=== PATIENT | female | born 1980 | race Two or more races ===

== ENCOUNTER 2024-10-11 08:53 | Outpatient (RCR) | payer MEDICAID, SELFPAY ==
--- NOTE | 2024-10-11 14:26 | CTCFLWUP_ITS ---
Patient: SHIREEN TAYLOR I. : 1980 Page 2 of 3 FOLLOW UP NOTE DATE OF SERVICE: 10/11/2024 NAME: SHIREEN TAYLOR I. ACCOUNT: [id number] : 1980 AGE: 44 INTERVAL HISTORY: Breast cancer ONCOLOGY HISTORY: DIAGNOSIS: Invasive ductal carcinoma DATE OF DIAGNOSIS: 08/18/2024 STAGE/TNM: Likely stage I TREATMENT HISTORY: Care?Plan Start?Date Cycle Day Intent HISTORY OF PRESENT ILLNESS: Patient is 44-year-old with a new diagnosis of breast cancer. Patient have a left breast biopsy done after she was found to have mass on the ultrasound. Patient's pathology report is not available. Patient have seen general surgeon but is requesting a referral to another surgeon. Patient is also very worried that her diagnosis may not be correct and requesting a repeat biopsy. 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 No Medications Medications Last Reconciled by Natalia Dewey RN on 10/11/2024 ALLERGIES: No Known Drug Allergies REVIEW OF SYSTEMS: A complete 14-point review of systems was performed and is negative except as noted in interval history. PHYSICAL EXAMINATION: VITAL SIGNS: Temperature?99.6, B/P?144/100, Height?62?inches, Oxygen?Saturation?99% Weight?155?lbs PAIN: 0 - No pain ECOG Performance Status: 0 - Asymptomatic and fully active GENERAL APPEARANCE: Appears well, in no apparent distress, appropriately interactive. HEENT: Normocephalic, no temporal wasting, normal conjunctiva, no scleral icterus, normal hearing, lips without lesions, neck normal range of motion. CARDIOVASCULAR: Not assessed. PULMONARY: Normal respiratory effort, no respiratory distress or use of accessory muscles, speaking in full sentences, no tachypnea. EXTREMITIES: No pedal edema or cyanosis. SKIN: Normal skin appearance. NEUROLOGIC: Alert and oriented x4. PSHYCHIATRIC: Appropriate affect, mood normal, behavior normal, intact thought and speech. LABORATORY DATA: I have personally reviewed and interpreted each of the patient?s relevant lab tests, abnormal findings are below: Date ASSESSMENT/PLAN: Invasive breast cancer left Patient have left breast cancer Likely stage I but final pathology report not available for me to review Will get records Refer to general surgery Refer to interventional radiology for biopsy. Patient is requesting second biopsy for a second opinion Advised to come back in 3 to 4 weeks to discuss results and plan treatment ORDERS: Order # Description [id number] Left + Unilateral + Breast Ultrasound + [id number] MD Follow Up 4 Week [id number] RETURN TO CLINIC: I reviewed the diagnosis, prognosis, and recommended treatment/procedure options with the patient (and/or their legal fundraising sale representative), including the potential benefits, risks, side effects and alternative therapies. We also discussed the option of no treatment and the possibility of clinical trial participation, if applicable. All questions were addressed, and they demonstrated understanding. They provided informed consent to proceed with the proposed plan of care. BILLING AND COMPLIANCE: I reviewed external records from providers outside my specialty as summarized above. I spent a total of 50 minutes on this patient?s care on the day of their visit excluding time spent related to any billed procedures. This time includes time spent with the patient as well as time spent documenting in the medical record, reviewing patients records and tests, obtaining history, placing orders, communicating with other healthcare professionals, counseling the patient, family or caregiver, and/or care coordination for the diagnoses above. Electronically Signed by: Jatin Andrews MD T: 2:24 PM CC: PCP: Referring: Donis Leon This document was completed utilizing speech recognition software. Grammatical errors, random word insertions, pronoun errors, and incomplete sentences are an occasional consequence of this system due to software limitations, ambient noise, and hardware issues. Any formal questions or concerns about the content, text or information contained within the body of this dictation should be directly addressed to the provider for clarification.
== END 2024-10-16 23:59 | disposition home or self-care (01) ==
LOC: SCTC 08:53
PROVIDERS: PCP Obstetrics & Gynecology; Referring Provider Obstetrics & Gynecology; Visit Provider Internal Medicine Hematology & Oncology
DX: C50.812 Malignant neoplasm of overlapping sites of left female breast (principal); Z17.0 Estrogen receptor positive status [ER+]; Z17.21 Progesterone receptor positive status; Z17.31 Human epidermal growth factor receptor 2 positive status
CPT/HCPCS: 99213; G0463

== ENCOUNTER → 2024-11-22 | Outpatient (CLI) | payer MEDICAID, SELFPAY ==
--- NOTE | 2024-11-22 13:00 | XR_ITS ---
Examination: Breast ultrasound, unilateral, left complete Date and time of exam: November 22, 2024, 1329 hours INDICATION: Palpable lump left breast 1 year, history of left breast biopsy August 18, 2024 Technique: Real-time barron scale ultrasonographic imaging performed left breast including all 4 quadrants as well as nipple retroareolar and axillary region. Findings: 12:00 cyst 9 x 10 mm 3-6 o'clock solid mass with indistinct margins 9.2 x 1.3 x 6.2 cm Abnormal left axillary lymph nodes, architectural distortion, 11 x 11 mm, 13 x 10 mm IMPRESSION: BI-RADS Category 4: Suspicious for malignancy Suspicious mass 3 to 6 o'clock position left breast 9.2 cm with abnormal axillary lymph nodes Biopsy of this mass and axillary lymph nodes needed to confirm carcinoma Also recommend diagnostic mammography
== END | disposition home or self-care (01) ==
PROVIDERS: Referring Provider Internal Medicine Hematology & Oncology; Visit Provider Internal Medicine Hematology & Oncology
DX: N63.25 Unspecified lump in the left breast, overlapping quadrants (principal); C50.912 Malignant neoplasm of unspecified site of left female breast
CPT/HCPCS: 76641

== ENCOUNTER 2024-12-16 08:53 | Outpatient (RCR) | payer MEDICAID, SELFPAY ==
--- NOTE | 2024-12-07 06:25 | CTCFLWUP_ITS ---
Patient: NIKKI TAYLOR I. : 1980 Page 3 of 4 FOLLOW UP NOTE DATE OF SERVICE: 12/05/2024 NAME: NIKKI TAYLOR I. ACCOUNT: [id number] : 1980 AGE: 44 INTERVAL HISTORY: No new complains. Patient have seen surgeon . mass has been growing and surgeon recommended newoadjuvant chemotherapy as mass is larger .. ONCOLOGY HISTORY: DIAGNOSIS: Invasive ductal carcinoma DATE OF DIAGNOSIS: 08/18/2024 STAGE/TNM: Like stage 3 TREATMENT HISTORY: Care?Plan Start?Date Cycle Day Intent AC?4?cy?DD?Taxol?wkly?12?wks 12/05/2024 1 7 Curative?(primary) HISTORY OF PRESENT ILLNESS: Patient is 44-year-old with a new diagnosis of breast cancer. Patient have a left breast biopsy done after she was found to have mass on the ultrasound. Patient's pathology report is not available. Patient have seen general surgeon but is requesting a referral to another surgeon. Patient is also very worried that her diagnosis may not be correct and requesting a repeat biopsy. 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 No Medications Medications Last Reconciled by Nikki Galvez MD on 12/05/2024 ALLERGIES: No Known Drug Allergies REVIEW OF SYSTEMS: A complete 14-point review of systems was performed and is negative except as noted in interval history. PHYSICAL EXAMINATION: VITAL SIGNS: Temperature?98.6, B/P?149/69, Oxygen?Saturation?100% Weight?155?lbs (Change?since?11/16/24:?0?lbs) PAIN: 0 - No pain ECOG Performance Status: None GENERAL APPEARANCE: Appears well, in no apparent distress, appropriately interactive. HEENT: Normocephalic, no temporal wasting, normal conjunctiva, no scleral icterus, normal hearing, lips without lesions, neck normal range of motion. CARDIOVASCULAR: Not assessed. PULMONARY: Normal respiratory effort, no respiratory distress or use of accessory muscles, speaking in full sentences, no tachypnea. EXTREMITIES: No pedal edema or cyanosis. SKIN: Normal skin appearance. NEUROLOGIC: Alert and oriented x4. PSHYCHIATRIC: Appropriate affect, mood normal, behavior normal, intact thought and speech. Breast mass atleast 9 cm LABORATORY DATA: I have personally reviewed and interpreted each of the patient?s relevant lab tests, abnormal findings are below: Date ASSESSMENT/PLAN: Invasive breast cancer left Patient have left breast cancer Likely stage 3 likely Referred to get port and chemo appointment Want second opinion ? referred to the place of patient?s choice Extensively counseled to start treatment immediately to avoid further spread Clear margins cannot be obtained at this time as mass is quite vague Echo ordered ORDERS: Order # Description RETURN TO CLINIC: I reviewed the diagnosis, prognosis, and recommended treatment/procedure options with the patient (and/or their legal business banking representative), including the potential benefits, risks, side effects and alternative therapies. We also discussed the option of no treatment and the possibility of clinical trial participation, if applicable. All questions were addressed, and they demonstrated understanding. They provided informed consent to proceed with the proposed plan of care. BILLING AND COMPLIANCE: I reviewed external records from providers outside my specialty as summarized above. I spent a total of 50 minutes on this patient?s care on the day of their visit excluding time spent related to any billed procedures. This time includes time spent with the patient as well as time spent documenting in the medical record, reviewing patients records and tests, obtaining history, placing orders, communicating with other healthcare professionals, counseling the patient, family or caregiver, and/or care coordination for the diagnoses above. Electronically Signed by: {Object.Sanct_ID*PnP.NameFL@M}, {Object.Sanct_ID*PnP.Suffix@U} D: {Object.Sanct_Date} T: {Object.Sanct_Time} CC: PCP: Referring: Jaitn Andrews This document was completed utilizing speech recognition software. Grammatical errors, random word insertions, pronoun errors, and incomplete sentences are an occasional consequence of this system due to software limitations, ambient noise, and hardware issues. Any formal questions or concerns about the content, text or information contained within the body of this dictation should be directly addressed to the provider for clarification.
== END 2024-12-16 23:59 | disposition home or self-care (01) ==
LOC: SCTC 08:53
PROVIDERS: Referring Provider Internal Medicine Hematology & Oncology; Visit Provider Internal Medicine Hematology & Oncology
DX: C50.812 Malignant neoplasm of overlapping sites of left female breast (principal); Z17.0 Estrogen receptor positive status [ER+]; Z17.21 Progesterone receptor positive status
CPT/HCPCS: 99212; G0463